=== PATIENT | female | born 1970 | race Caucasian/White ===

== ENCOUNTER 2020-12-19 16:45 | Emergency (ER) | payer MEDICARE ==
[~2020-12-19] VITALS: Ht 152.4 cm; Wt 97.5 kg
[2020-12-19] MEDS ORDERED: DEXAMETHASONE SOD PHOS 10 MG/1 ML VIAL IV ONE (17:30)
[2020-12-19] MEDS ORDERED: ACETAMINOPHEN/CODEINE 300MG - 30MG TAB PO ONE (17:30)
[2020-12-19] MEDS ORDERED: MEDROL8 MG PO (18:55)
[2020-12-19] MEDS ORDERED: TESSALON PERLE100 MG PO (18:55)
[2020-12-19] MEDS ORDERED: AUGMENTIN 875-1 EACH PO (18:55)
[2020-12-19] MEDS ORDERED: TYLENOL # 31 EA PO (18:55)
[2020-12-19 19:41] VITALS: BP 118/90
== END 2020-12-19 19:46 | disposition home or self-care (01) ==
LOC: ER 16:58
DX: J20.9 Acute bronchitis, unspecified (principal); R05 Cough; I10 Essential (primary) hypertension; G50.0 Trigeminal neuralgia; F41.9 Anxiety disorder, unspecified; F32.9 Major depressive disorder, single episode, unspecified; M54.9 Dorsalgia, unspecified; G89.29 Other chronic pain
CPT/HCPCS: 70360; 71045; 99283; J1100